=== PATIENT | male | born 1960 | race Caucasian/White ===

== ENCOUNTER 2021-01-25 00:34 | Inpatient (IN) | payer MEDICARE, OTHER ==
[~2021-01-25] VITALS: Ht 177.8 cm; Wt 85.3 kg
--- NOTE | 2021-01-25 01:05 | NUR ---
Patient BIB [facility] unit 1506 from [facility] ER on a 5150 for DTS/DTO to be medically cleared to be admitted to MHU. Patient upon arrival cooperative and hyperverbal. Blood sugar at 3hrs ago was 315 and was president and cmo 6units of insulin per report.
--- NOTE | 2021-01-25 01:45 | NUR ---
Patient medically clear and can be admitted to MHU for DTS/DTO, under Dr. Mcallister and Dr. To. Called for bed done. Will be in room 145C
--- NOTE | 2021-01-25 02:08 | NUR ---
Report given to U nurse Albert.
--- NOTE | 2021-01-25 02:47 | NUR ---
Pt. admitted to MHU, room 145C, under care of Dr. Mcallister and Dr. Hallman, Dx DTS and DTO on a 5150 hold.Medically cleared. Belongs List completed.
[2021-01-25] MEDS ORDERED: MAG HYDROX/AL HYDROX/SIMETH 30 ML LIQUID UDC PO PRN (03:00)
[2021-01-25] MEDS ORDERED: ACETAMINOPHEN 325 MG TABLET PO PRN (03:00)
[2021-01-25] MEDS ORDERED: BLOOD SUGAR DIAGNOSTIC 1 EACH STRIP VI ONE (03:00)
[2021-01-25] MEDS ORDERED: MAGNESIUM HYDROXIDE 30 ML LIQUID UDC PO PRN (03:00)
[2021-01-25 03:02] VITALS: BP 123/85
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
--- NOTE | 2021-01-25 06:00 | NUR ---
lept 2 hours. continues to sleep. no distress noted.
[2021-01-25 07:30] VITALS: BP 106/87
--- NOTE | 2021-01-25 08:32 | NUR ---
FIREARMS REPORT: Ventilator Specialist completed and submitted a [employer] firearms report for 5150 grave disability certification. A copy of report has been placed in patient chart.
--- NOTE | 2021-01-25 09:39 | NUR ---
PRABHAKAR Initial Discharge Plan: Patient stated that he has been living on the streets. Patient does not have any support at this time. PRABHAKAR will work with the MD and treatment team to coordinate proper discharge.
[2021-01-25] MEDS ORDERED: QUETIAPINE FUMARATE 25 MG TABLET PO PRN (10:45)
[2021-01-25] MEDS: CLONAZEPAM 0.5 MG TABLET PO SCH ×2 (12:04→16:41)
[2021-01-25] MEDS ORDERED: DEXTROSE 50% 50 ML DISP.SYRIN IV PRN (12:30)
[2021-01-25] MEDS: LITHIUM CARBONATE 150 MG CAPSULE PO SCH ×2 (13:00→16:41)
[2021-01-25] MEDS: ASPIRIN 81 MG TAB.CHEW PO SCH (13:01)
[2021-01-25] MEDS: BLOOD SUGAR DIAGNOSTIC 1 EACH STRIP VI SCH ×2 (16:31→20:39)
[2021-01-25] MEDS: INSULIN REGULAR, HUMAN 300 UNIT/3 ML VIAL SQ PRN ×2 (16:39→20:47)
[2021-01-25 16:49] VITALS: BP 128/72
--- NOTE | 2021-01-25 17:00 | NUR ---
Gps/Rn Building- Incoherent speech , does not have any clue. Confused /disoriented . Able to take naps this pm. Non compliant with his diabetic diet, kept asking for more foods , concentrated sweets , drinks , reviewed and tried to educ. re-dietary needs /restrictions Tried to redirect patient . Making simple needs known to staff. Face flushed. Stayed in the dinning room during his dinner.
[2021-01-25] MEDS: METFORMIN HCL 500 MG TABLET PO SCH (17:57)
[2021-01-25 20:22] VITALS: BP 121/68
[2021-01-25] MEDS: QUETIAPINE FUMARATE 25 MG TABLET PO SCH (20:30)
[2021-01-25] MEDS: ATORVASTATIN 40 MG TABLET PO SCH (20:30)
[2021-01-25] MEDS: LORAZEPAM 0.5 MG TABLET PO PRN (20:30)
--- NOTE | 2021-01-26 04:48 | NUR ---
Received the patient at the nurses station, demanding to have his things. This patient came in with multiple bags when admitted . One plastic bag had rotten food in it, another had what appeared to be plain white randall shirts that were wet with black mildew and bugs on them. Those items were unsanitary and unsafe for the unit and were disposed off outside. All salvageable cloths were washed and put in the locker. Patient was shouting about all kinds of topics and refused to listen or calm down at that time. The patient appeared to be confused and paranoid. Patient also was having delusions. Used Car Lot Attendant was able to eventually redirect and reorient the patient to the unit rules. This patient is resistant to rules and structure. Speaking hyperverbal, and acting demanding and entitled. Used Car Lot Attendant is monitoring this patient closely for behavior escalation and compliance.
[2021-01-26] MEDS: BLOOD SUGAR DIAGNOSTIC 1 EACH STRIP VI SCH ×4 (06:02→20:11)
[2021-01-26] MEDS: LITHIUM CARBONATE 150 MG CAPSULE PO SCH ×3 (08:57→17:01)
[2021-01-26] MEDS: CLONAZEPAM 0.5 MG TABLET PO SCH ×3 (08:57→17:01)
[2021-01-26] MEDS: ASPIRIN 81 MG TAB.CHEW PO SCH (08:57)
[2021-01-26] MEDS: METFORMIN HCL 500 MG TABLET PO SCH ×2 (08:57→17:01)
[2021-01-26] MEDS: INSULIN REGULAR, HUMAN 300 UNIT/3 ML VIAL SQ PRN ×3 (08:59→17:05)
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
[2021-01-26 16:51] VITALS: BP 152/70
[2021-01-26 20:00] VITALS: BP 119/71
[2021-01-26] MEDS: ATORVASTATIN 40 MG TABLET PO SCH (20:11)
[2021-01-26] MEDS: QUETIAPINE FUMARATE 25 MG TABLET PO SCH (20:11)
[2021-01-26] MEDS: INSULIN REGULAR, HUMAN 300 UNITS/3 ML VIAL SQ PRN (20:16)
--- NOTE | 2021-01-27 03:53 | NUR ---
Patient was irritable and inpatient at the start of the shift. Standing around the station, staring at the staff until they complied with his multiple, ongoing requests. Patient remains delusional and verbalizes many different complaints about his health. The patient is loud at times and challenging to the unit rules. No overt physical aggression so far, but unwilling or unable to take suggestions or advise of any kind. Argumentative with this software writer and acts entitled to whatever his requests may be, reasonable or not.
[2021-01-27] MEDS: BLOOD SUGAR DIAGNOSTIC 1 EACH STRIP VI SCH ×4 (06:20→20:32)
[2021-01-27 08:27] VITALS: BP 116/76
[2021-01-27] MEDS: CLONAZEPAM 0.5 MG TABLET PO SCH ×3 (08:29→17:25)
[2021-01-27] MEDS: METFORMIN HCL 500 MG TABLET PO SCH ×2 (08:29→17:25)
[2021-01-27] MEDS: ASPIRIN 81 MG TAB.CHEW PO SCH (08:29)
[2021-01-27] MEDS: LITHIUM CARBONATE 150 MG CAPSULE PO SCH ×3 (08:29→17:25)
[2021-01-27] MEDS: INSULIN REGULAR, HUMAN 300 UNIT/3 ML VIAL SQ PRN ×2 (08:30→12:58)
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
[2021-01-27 20:13] VITALS: BP 131/80
[2021-01-27] MEDS: ATORVASTATIN 40 MG TABLET PO SCH (20:32)
[2021-01-27] MEDS: QUETIAPINE FUMARATE 25 MG TABLET PO SCH (20:40)
[2021-01-27] MEDS: INSULIN REGULAR, HUMAN 300 UNITS/3 ML VIAL SQ PRN (20:45)
--- NOTE | 2021-01-28 00:30 | NUR ---
received to care, sitting in his room, appearing agitated and hyperverbal, very disorganized, with rambling speech, going from subject, to subject, and frequently stating that people were stealing from him. he refused his seroquel, stating that pain was one of the side effects of this medication, he was told that this was untrue. this commercial insurance underwriter offered to print out a sheet explaining the side effects, but he declined, stating that "they" will delete the real side effects, and "insert false ones" he stated that he wanted to see his belongings, that he was being restricted from his things. this commercial insurance underwriter brought his bags (five, in all) for him to go through. he took over 40 minutes to go through them, insisting on all his notebooks, many of which were completely filled out with his writing. he also insisted on various receipts, including ones from the drug store, and many various papers, and ads. he also wanted to keep various contraband items, which he was told was not permitted. he did take his wristwatch, and placed it on his wrist. his remaining belongings were then secured back in the contraband locker. after all the time he was given to go through his things, he insisted there were other bags, that staff must be stealing from him. he had a huge pile of things, which he organized in two plastic basins, which he took, at put at his bedside. he continued to ask for some large envelopes, which he said was in his bags. when told he went through them all, he became verbally hostile, but was redirected easily, and he forgot, after a few minutes. he then went to watch tv, until midnight, when he went to bed. as of now, he appears to be asleep. no distress noted.
--- NOTE | 2021-01-28 06:00 | NUR ---
slept 5.5 hours, total.
[2021-01-28] MEDS: BLOOD SUGAR DIAGNOSTIC 1 EACH STRIP VI SCH ×4 (06:59→21:12)
[2021-01-28 08:06] VITALS: BP 139/79
[2021-01-28] MEDS: METFORMIN HCL 500 MG TABLET PO SCH ×2 (08:30→17:24)
[2021-01-28] MEDS: CLONAZEPAM 0.5 MG TABLET PO SCH ×2 (08:31→17:24)
[2021-01-28] MEDS: LITHIUM CARBONATE 150 MG CAPSULE PO SCH (08:31)
[2021-01-28] MEDS: ASPIRIN 81 MG TAB.CHEW PO SCH (08:31)
[2021-01-28] MEDS: INSULIN REGULAR, HUMAN 300 UNIT/3 ML VIAL SQ PRN (08:36)
--- NOTE | 2021-01-28 10:44 | NUR ---
PRABHAKAR SNF Referral: PRABHAKAR faxed patient's referral packet to [facility] (F:[phone]) attention to [facility] care team coordinator scheduler for review. Addendum: 01/28/21 at 1226 by SETH BARDALES Patient is accepted at facility for placement.
[2021-01-28] MEDS: LITHIUM CARBONATE 300 MG CAPSULE PO SCH ×2 (12:50→21:03)
--- NOTE | 2021-01-28 12:52 | NUR ---
PRABHAKAR PC Hearing: Patient had 5250 probable cause hearing today and it was upheld for grave disability and danger to others.
[2021-01-28 16:20] VITALS: BP 124/73
[2021-01-28 20:00] VITALS: BP 142/71
[2021-01-28] MEDS: ATORVASTATIN 40 MG TABLET PO SCH (21:03)
[2021-01-28] MEDS: INSULIN REGULAR, HUMAN 300 UNITS/3 ML VIAL SQ PRN (21:28)
--- NOTE | 2021-01-28 22:00 | NUR ---
received to care, watching tv, talking to self, but pleasant and cooperative, accepting set limits. compliant with medications and staff direction. as of now, he is asleep. no distress noted,
--- NOTE | 2021-01-29 06:00 | NUR ---
slept 7.5 hours total
[2021-01-29] MEDS: BLOOD SUGAR DIAGNOSTIC 1 EACH STRIP VI SCH ×4 (07:02→21:28)
[2021-01-29 07:03] LABS: HEMATOCRIT 44.6 % (36.7-47.1); MEAN CORPUSCULAR HEMOGLOBIN 29.6 uug (23.8-33.4); MEAN CORPUSCULAR VOLUME 88.9 fL (73.0-96.2); PLATELET COUNT (AUTO) 276 K/uL (152-348)
[2021-01-29 07:22] LABS: BILIRUBIN,TOTAL 0.4 mg/dL (0.2-1.0); CREATININE 0.8 mg/dL (0.6-1.3); POTASSIUM 4.6 mmol/L (3.5-5.1); TOTAL PROTEIN, SERUM 7.4 g/dL (6.4-8.2)
[2021-01-29 07:30] VITALS: BP 111/78
[2021-01-29] MEDS ORDERED: LITHIUM CARBONATE 150 MG CAPSULE PO SCH (08:00)
[2021-01-29] MEDS: METFORMIN HCL 500 MG TABLET PO SCH ×2 (08:35→17:16)
[2021-01-29] MEDS: CLONAZEPAM 0.5 MG TABLET PO SCH ×2 (08:35→17:16)
[2021-01-29] MEDS: ASPIRIN 81 MG TAB.CHEW PO SCH (08:35)
[2021-01-29] MEDS: INSULIN REGULAR, HUMAN 300 UNIT/3 ML VIAL SQ PRN ×2 (08:37→11:40)
[2021-01-29] MEDS: LITHIUM CARBONATE 300 MG CAPSULE PO SCH ×2 (12:08→21:15)
[2021-01-29 15:20] VITALS: BP 132/73
[2021-01-29 20:07] VITALS: BP 112/64
[2021-01-29] MEDS: ATORVASTATIN 40 MG TABLET PO SCH (21:14)
[2021-01-29] MEDS: INSULIN GLARGINE,HUM 300 UNITS/3 ML CARTRIDGE SQ SCH (21:31)
[2021-01-29] MEDS: INSULIN REGULAR, HUMAN 300 UNITS/3 ML VIAL SQ PRN (21:36)
[2021-01-29] MEDS: TEMAZEPAM 7.5 MG CAPSULE PO PRN (22:36)
--- NOTE | 2021-01-29 23:30 | NUR ---
received to care, isolative, but pleasant upon approach. no interactions noted with peers. compliant with medicatiuons and staff direction. PRN restoril given at 2236, for insomnia. as of now, he appears to be asleep. no distress noted. will continue to monitor closely.
--- NOTE | 2021-01-30 06:00 | NUR ---
slept 5 hours total.
[2021-01-30] MEDS: BLOOD SUGAR DIAGNOSTIC 1 EACH STRIP VI SCH ×4 (07:03→20:18)
[2021-01-30 07:30] VITALS: BP 132/74
[2021-01-30] MEDS: LITHIUM CARBONATE 300 MG CAPSULE PO SCH ×3 (08:44→20:25)
[2021-01-30] MEDS: CLONAZEPAM 0.5 MG TABLET PO SCH ×2 (08:44→17:03)
[2021-01-30] MEDS: METFORMIN HCL 500 MG TABLET PO SCH ×2 (08:44→17:03)
[2021-01-30] MEDS: ASPIRIN 81 MG TAB.CHEW PO SCH (08:44)
[2021-01-30] MEDS: INSULIN REGULAR, HUMAN 300 UNIT/3 ML VIAL SQ PRN ×2 (14:45→17:05)
[2021-01-30 16:00] VITALS: BP 134/74
--- NOTE | 2021-01-30 18:31 | NUR ---
GPS: pt alert and cooperative with care. denies pain. no aggressive episode today. meds given and tolerated well.
[2021-01-30] MEDS: INSULIN REGULAR, HUMAN 300 UNITS/3 ML VIAL SQ PRN (20:19)
[2021-01-30] MEDS: INSULIN GLARGINE,HUM 300 UNITS/3 ML CARTRIDGE SQ SCH (20:25)
[2021-01-30] MEDS: ATORVASTATIN 40 MG TABLET PO SCH (20:25)
[2021-01-31] MEDS: BLOOD SUGAR DIAGNOSTIC 1 EACH STRIP VI SCH ×4 (06:33→20:46)
[2021-01-31 07:30] VITALS: BP 120/66
[2021-01-31] MEDS: INSULIN REGULAR, HUMAN 300 UNIT/3 ML VIAL SQ PRN ×3 (08:43→17:40)
[2021-01-31] MEDS: LITHIUM CARBONATE 300 MG CAPSULE PO SCH ×3 (08:43→20:11)
[2021-01-31] MEDS: ASPIRIN 81 MG TAB.CHEW PO SCH (08:43)
[2021-01-31] MEDS: CLONAZEPAM 0.5 MG TABLET PO SCH ×2 (08:44→17:41)
[2021-01-31] MEDS: METFORMIN HCL 500 MG TABLET PO SCH ×2 (10:25→17:41)
[2021-01-31 16:00] VITALS: BP 107/69
--- NOTE | 2021-01-31 16:11 | NUR ---
Gps/Patrol Driver- Attends and participate in his group therapy, compliant with routine am medications . redirectable. Encouraged continued verbalizations of his needs.
[2021-01-31] MEDS: ATORVASTATIN 40 MG TABLET PO SCH (20:11)
[2021-01-31 20:29] VITALS: BP 105/64
[2021-01-31] MEDS: INSULIN REGULAR, HUMAN 300 UNITS/3 ML VIAL SQ PRN (20:48)
[2021-01-31] MEDS: INSULIN GLARGINE,HUM 300 UNITS/3 ML CARTRIDGE SQ SCH (20:54)
--- NOTE | 2021-01-31 21:58 | NUR ---
GPS: Resting in bed at this time. Remains paranoid,suspicious,needy and easily irritable. Re-directed prn. Blood sugar checks done as scheduled. Will continue to monitor.
[2021-02-01] MEDS: BLOOD SUGAR DIAGNOSTIC 1 EACH STRIP VI SCH ×4 (06:33→20:49)
[2021-02-01 07:30] VITALS: BP 131/79
[2021-02-01 07:49] LABS: HEMATOCRIT 43.3 % (36.7-47.1); MEAN CORPUSCULAR HEMOGLOBIN 30.2 uug (23.8-33.4); MEAN CORPUSCULAR VOLUME 88.9 fL (73.0-96.2); PLATELET COUNT (AUTO) 284 K/uL (152-348)
[2021-02-01 07:59] LABS: BILIRUBIN,TOTAL 0.5 mg/dL (0.2-1.0); CREATININE 0.9 mg/dL (0.6-1.3); POTASSIUM 4.3 mmol/L (3.5-5.1); TOTAL PROTEIN, SERUM 7.4 g/dL (6.4-8.2)
[2021-02-01] MEDS ORDERED: CLONAZEPAM 0.5 MG TABLET PO SCH (09:00)
[2021-02-01] MEDS: METFORMIN HCL 500 MG TABLET PO SCH ×2 (09:48→17:21)
[2021-02-01] MEDS: ASPIRIN 81 MG TAB.CHEW PO SCH (09:48)
[2021-02-01] MEDS: LITHIUM CARBONATE 300 MG CAPSULE PO SCH ×3 (09:48→20:05)
[2021-02-01] MEDS: INSULIN REGULAR, HUMAN 300 UNIT/3 ML VIAL SQ PRN (12:03)
[2021-02-01] MEDS: CLONAZEPAM 0.5 MG TABLET PO SCH ×2 (13:44→17:21)
--- NOTE | 2021-02-01 14:00 | NUR ---
Gps/Securities Settlement Processor- Denies cheeking his lithium/routine meds. will continue to monitor, lithium level 0.14 . Had been eating well, adequate intake, no hypo/hyperglycemia noted. Had been in and out of his group activities.
[2021-02-01] MEDS: ATORVASTATIN 40 MG TABLET PO SCH (20:05)
[2021-02-01 20:18] VITALS: BP 125/69
[2021-02-01] MEDS: INSULIN GLARGINE,HUM 300 UNITS/3 ML CARTRIDGE SQ SCH (20:33)
[2021-02-01] MEDS: INSULIN REGULAR, HUMAN 300 UNITS/3 ML VIAL SQ PRN (20:34)
[2021-02-02] MEDS: BLOOD SUGAR DIAGNOSTIC 1 EACH STRIP VI SCH ×4 (06:20→20:02)
--- NOTE | 2021-02-02 06:38 | NUR ---
GPS: Pt.slept 6 hrs.last night. B.S at this time is 168mg/dl. Will continue to monitor.
[2021-02-02 07:30] VITALS: BP 134/77
[2021-02-02] MEDS: INSULIN REGULAR, HUMAN 300 UNIT/3 ML VIAL SQ PRN ×2 (07:55→12:08)
[2021-02-02] MEDS: CLONAZEPAM 0.5 MG TABLET PO SCH ×3 (08:50→16:11)
[2021-02-02] MEDS: METFORMIN HCL 500 MG TABLET PO SCH ×2 (08:50→16:10)
[2021-02-02] MEDS: LITHIUM CARBONATE 300 MG CAPSULE PO SCH ×3 (08:50→20:01)
[2021-02-02] MEDS: ASPIRIN 81 MG TAB.CHEW PO SCH (08:50)
--- NOTE | 2021-02-02 14:00 | NUR ---
Gps/Inpatient Pharmacist- Patient was checked for cheeking psych. meds., none noted at this time, reviewed with patient importance to taking his medications as prescribed , patient denies cheeking, checked orally each meds. administration , compliance noted.
--- NOTE | 2021-02-02 17:27 | NUR ---
Gps/Suede Cleaner- Kept insisting, requesting for shower , informed of the shower schedules, gave self shower ind. after set up.
[2021-02-02 20:00] VITALS: BP 106/56
[2021-02-02] MEDS: LORAZEPAM 0.5 MG TABLET PO PRN (20:01)
[2021-02-02] MEDS: ATORVASTATIN 40 MG TABLET PO SCH (20:01)
[2021-02-02] MEDS: QUETIAPINE FUMARATE 25 MG TABLET PO SCH ×2 (20:02→20:12)
[2021-02-02] MEDS: INSULIN GLARGINE,HUM 300 UNITS/3 ML CARTRIDGE SQ SCH (20:04)
[2021-02-02] MEDS: INSULIN REGULAR, HUMAN 300 UNITS/3 ML VIAL SQ PRN (20:06)
--- NOTE | 2021-02-03 05:20 | NUR ---
Received patient in a dark room, making his bed over and over. The patient is paranoid as well as needy. The patient refused to take Seroquel last night stating " The doctor has no right ordering that medication for me. He just wants to stick it to me, ya know like punish me". The patient was asking for multiple things during the shift . Things such as requests for papers to be copied, new cloths, food etc.. The patient has poor insight and is unable to engage in any meaningful conversation d/t periods of confusion and delusions. Sleep hour are 6.45.
[2021-02-03] MEDS: BLOOD SUGAR DIAGNOSTIC 1 EACH STRIP VI SCH ×4 (06:26→20:01)
[2021-02-03 07:30] VITALS: BP 103/56
[2021-02-03] MEDS: CLONAZEPAM 0.5 MG TABLET PO SCH ×3 (08:48→16:54)
[2021-02-03] MEDS: ASPIRIN 81 MG TAB.CHEW PO SCH (08:48)
[2021-02-03] MEDS: METFORMIN HCL 500 MG TABLET PO SCH ×2 (08:48→17:04)
[2021-02-03] MEDS: LITHIUM CARBONATE 300 MG CAPSULE PO SCH ×3 (08:48→19:47)
--- NOTE | 2021-02-03 10:51 | NUR ---
Gps/Traffic Expert- Patient trying to hand a small piece of paper , requesting to be given to his Medical Doctor, r/t he claimed had a fall yesterday during his shower, per DATASTAGE ARCHITECT none noted . Patient walking around with steady gait , stayed mostly in the TV room watching TV , Needy , and gets anxious .
[2021-02-03] MEDS: INSULIN REGULAR, HUMAN 300 UNIT/3 ML VIAL SQ PRN ×2 (12:33→16:53)
[2021-02-03 16:00] VITALS: BP 112/59
[2021-02-03] MEDS: QUETIAPINE FUMARATE 25 MG TABLET PO SCH (20:01)
[2021-02-03] MEDS: ATORVASTATIN 40 MG TABLET PO SCH (20:01)
[2021-02-03] MEDS: INSULIN REGULAR, HUMAN 300 UNITS/3 ML VIAL SQ PRN (20:14)
[2021-02-03] MEDS: INSULIN GLARGINE,HUM 300 UNITS/3 ML CARTRIDGE SQ SCH (20:15)
--- NOTE | 2021-02-04 06:07 | NUR ---
GPS: Pt.slept 5.45 last night. Remains needy,paranoid and suspicious. Frequently asking staff to do things for him. Has disorganized thoughts and easily irritable. BS at this time is 171mg/dl. Will continue to monitor.
[2021-02-04] MEDS: BLOOD SUGAR DIAGNOSTIC 1 EACH STRIP VI SCH ×4 (06:24→20:51)
[2021-02-04 07:54] VITALS: BP 112/80
[2021-02-04] MEDS: METFORMIN HCL 500 MG TABLET PO SCH ×2 (08:35→17:06)
[2021-02-04] MEDS: ASPIRIN 81 MG TAB.CHEW PO SCH (08:35)
[2021-02-04] MEDS: LITHIUM CARBONATE 300 MG CAPSULE PO SCH ×2 (08:35→13:20)
[2021-02-04] MEDS: CLONAZEPAM 0.5 MG TABLET PO SCH ×3 (08:35→16:46)
[2021-02-04 15:51] VITALS: BP 123/87
[2021-02-04 20:07] VITALS: BP 126/76
[2021-02-04] MEDS: ATORVASTATIN 40 MG TABLET PO SCH (20:43)
[2021-02-04] MEDS: LITHIUM CARBONATE 150 MG CAPSULE PO SCH (20:43)
[2021-02-04] MEDS: QUETIAPINE FUMARATE 25 MG TABLET PO SCH (20:51)
[2021-02-04] MEDS: INSULIN GLARGINE,HUM 300 UNITS/3 ML CARTRIDGE SQ SCH (20:55)
[2021-02-04] MEDS: INSULIN REGULAR, HUMAN 300 UNITS/3 ML VIAL SQ PRN (20:59)
[2021-02-04] MEDS: TEMAZEPAM 7.5 MG CAPSULE PO PRN (22:23)
--- NOTE | 2021-02-04 23:30 | NUR ---
received to care, isolative, but pleasant and cooperative. no aggressive or manipulative behaviors noted. mainly focused on snacks and tv, but compliant with all activities, except he refused his seroquel. PRN restoril was given at 2222, for insomnia. as of now, he appears to be asleep. no distress noted. will continue to monitor.
[2021-02-05] MEDS: BLOOD SUGAR DIAGNOSTIC 1 EACH STRIP VI SCH ×4 (06:47→21:56)
[2021-02-05] MEDS: CLONAZEPAM 0.5 MG TABLET PO SCH ×3 (08:48→16:49)
[2021-02-05] MEDS: ASPIRIN 81 MG TAB.CHEW PO SCH (08:48)
[2021-02-05] MEDS: LITHIUM CARBONATE 300 MG CAPSULE PO SCH ×2 (08:48→12:29)
[2021-02-05] MEDS: METFORMIN HCL 500 MG TABLET PO SCH ×2 (08:49→17:05)
--- NOTE | 2021-02-05 09:39 | NUR ---
Social Work Discharge Plan Patient was accepted at [facility], [address] [place] [address] ( [phone]). Mar, fitness and wellness coordinator confirmed that patient can be admitted to [facility]. Dr Mcallister is planning discharge for 02/06/21. Patient will need am ambulance transportation at noon. Patient has dementia and so is unable to comprehend discharge plan. facility are able to provide appropriate care for him. Patient will be followed by Dr Mcallister at [facility] and [facility] hospitalist will follow patient there as well.
[2021-02-05] MEDS: INSULIN REGULAR, HUMAN 300 UNIT/3 ML VIAL SQ PRN (17:22)
[2021-02-05 21:32] VITALS: BP 102/63
[2021-02-05] MEDS: ATORVASTATIN 40 MG TABLET PO SCH (21:52)
[2021-02-05] MEDS: LITHIUM CARBONATE 150 MG CAPSULE PO SCH (21:53)
[2021-02-05] MEDS: INSULIN GLARGINE,HUM 300 UNITS/3 ML CARTRIDGE SQ SCH (21:55)
[2021-02-05] MEDS: INSULIN REGULAR, HUMAN 300 UNITS/3 ML VIAL SQ PRN (22:02)
--- NOTE | 2021-02-05 23:30 | NUR ---
received to care, isolative, but pleasant and cooperative. no aggression noted. compliant with medications and staff direction. as of now, he appears to be asleep. no distress noted. will continue to monitor.
--- NOTE | 2021-02-06 06:00 | NUR ---
slept 6.75 hours, total. refused AM lab draw.
[2021-02-06] MEDS: BLOOD SUGAR DIAGNOSTIC 1 EACH STRIP VI SCH ×2 (06:54→12:19)
[2021-02-06 07:55] VITALS: BP 135/76
[2021-02-06] MEDS: CLONAZEPAM 0.5 MG TABLET PO SCH ×2 (08:25→12:36)
[2021-02-06] MEDS: METFORMIN HCL 500 MG TABLET PO SCH (08:25)
[2021-02-06] MEDS: ASPIRIN 81 MG TAB.CHEW PO SCH (08:25)
[2021-02-06] MEDS: LITHIUM CARBONATE 300 MG CAPSULE PO SCH ×2 (08:35→12:35)
[2021-02-06] MEDS: INSULIN REGULAR, HUMAN 300 UNIT/3 ML VIAL SQ PRN ×2 (10:00→12:31)
--- NOTE | 2021-02-06 15:38 | NUR ---
Social Work Discharge Plan Patient discharged to [facility], [address] [place] [address] ). Patient was transported by ambulance. Facility are able to provide appropriate care for him. Patient will be followed by Dr Mcallister at [facility] and [facility] hospitalist will follow patient there as well. 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 he was agreeable to placement.
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
--- NOTE | 2021-02-06 15:48 | NUR ---
GPS: Pt alert and verbally responsive, was discharged to [facility], [address] [place] [address] ). Patient was transported by ambulance. Patient will be followed by Dr Mcallister at [facility] and [facility] hospitalist will follow patient there as well.
== END 2021-02-06 14:45 | DRG 885 ==
LOC: ER 00:41 → GPS 02:35
PROVIDERS: ADMIT Psychiatry & Neurology Psychosomatic Medicine; ATTEND Nurse Practitioner Acute Care
DX: F25.9 Schizoaffective disorder, unspecified (principal); E11.65 Type 2 diabetes mellitus with hyperglycemia; D68.59 Other primary thrombophilia; E44.1 Mild protein-calorie malnutrition; Z20.822 Contact with and (suspected) exposure to COVID-19; F19.10 Other psychoactive substance abuse, uncomplicated; Z59.0 Homelessness; E66.01 Morbid (severe) obesity due to excess calories; E78.5 Hyperlipidemia, unspecified; E86.0 Dehydration; F17.200 Nicotine dependence, unspecified, uncomplicated; I10 Essential (primary) hypertension; M19.90 Unspecified osteoarthritis, unspecified site; E88.09 Other disorders of plasma-protein metabolism, not elsewhere classified; N40.0 Benign prostatic hyperplasia without lower urinary tract symptoms; Z91.19 Patient's noncompliance with other medical treatment and regimen; Z79.84 Long term (current) use of oral hypoglycemic drugs; Z68.27 Body mass index [BMI] 27.0-27.9, adult
CPT/HCPCS: 36415; 70030-TC; 85025; 93005; J1815

== ENCOUNTER 2021-11-13 22:54 | Emergency (ER) | payer MEDICARE, OTHER ==
[~2021-11-13] VITALS: Ht 175.3 cm; Wt 88.5 kg
--- NOTE | 2021-11-13 23:30 | NUR ---
Dr Farmer at bedside, MSE in progress.
[2021-11-14 00:25] LABS: HEMATOCRIT 41.1 % (36.7-47.1); MEAN CORPUSCULAR HEMOGLOBIN 29.4 uug (23.8-33.4); MEAN CORPUSCULAR VOLUME 88.1 fL (73.0-96.2); PLATELET COUNT (AUTO) 239 K/uL (152-348)
[2021-11-14 00:38] LABS: ALANINE AMINOTRANSFERASE 53 U/L (16-63); ALKALINE PHOSPHATASE 96 U/L (50-136); ASPARTATE AMINOTRANSFERASE 24 U/L (15-37); BILIRUBIN,DIRECT 0.1 mg/dL (0.0-0.2); BILIRUBIN,TOTAL 0.4 mg/dL (0.2-1.0); CARBON DIOXIDE 28 mmol/L (21-32); CHLORIDE 98 mmol/L (98-107); CREATINE KINASE, TOTAL 119 U/L (39-308); CREATININE 0.9 mg/dL (0.6-1.3); GLUCOSE 289 mg/dL (74-106); POTASSIUM 4.1 mmol/L (3.5-5.1); TOTAL PROTEIN, SERUM 7.4 g/dL (6.4-8.2); UREA NITROGEN, BLOOD 17 mg/dL (7-18)
[2021-11-14] MEDS ORDERED: OLANZAPINE 10 MG VIAL IM ONE ×2 (01:14→01:15)
--- NOTE | 2021-11-14 01:56 | NUR ---
Patient given written and verbal discharge instructions. Patient verbalizes understanding of instructions. Patient is ambulatory with steady gait. Refuses offer of longterm placement. Patient given list of available shelters in surrounding area.
[2021-11-14 02:20] LABS: NEUTROPHILS % (MANUAL) 0 % (42-75)
[2021-11-14 02:48] LABS: ACETAMINOPHEN < 2.0 ug/mL (10-30)
[2021-11-14 05:28] LABS: *BILIRUBIN,URIN NEGATIVE (NEGATIVE); *BLOOD, URINE NEGATIVE (NEGATIVE); *CLARITY,URINE CLEAR (CLEAR); *COLOR,URINE YELLOW (YELLOW); *KETONES,URINE 2+ (NEGATIVE); *UROBILINOGEN,URINE 0.2 E.U./dl (NORMAL); LEUKOCYTE ESTERASE ,URINE NEGATIVE (NEGATIVE); NITRITE, URINE NEGATIVE (NEGATIVE)
[2021-11-14 05:31] LABS: UGLUCOSE 2+ (NEGATIVE)
[2021-11-14 05:41] LABS: *AMPHETAMINE, URINE NEGATIVE (NEGATIVE); *CANNABINOID, URINE NEGATIVE (NEGATIVE); *COCCAINE, URINE NEGATIVE (NEGATIVE); *OPIATE, URINE NEGATIVE (NEGATIVE); *PHENCYCLIDINE SCREEN,URINE NEGATIVE (NEGATIVE)
[2021-11-14 06:10] VITALS: BP 133/69
[2021-11-14 09:15] LABS: ETHANOL < 3 MG/DL (0-0)
== END 2021-11-14 02:04 | disposition home or self-care (01) ==
LOC: ER 22:54
DX: F20.9 Schizophrenia, unspecified (principal); Z59.00 Homelessness unspecified; Z88.1 Allergy status to other antibiotic agents; Z88.0 Allergy status to penicillin; R03.0 Elevated blood-pressure reading, without diagnosis of hypertension; M19.90 Unspecified osteoarthritis, unspecified site
CPT/HCPCS: 36415; 70030-TC; 85025; 93005; A4663; G0480; J2358